=== PATIENT | female | born 1970 ===

== ENCOUNTER 2018-10-08 14:03 | Outpatient (CLI) | payer MEDICAID | END 2018-10-08 14:04 | disposition home or self-care (01) | LOC: C.MAMMO 14:03 ==

== ENCOUNTER 2018-12-25 17:36 | Emergency (ER) | payer MEDICAID ==
[2018-12-25 17:46] VITALS: BP 117/72; PULSE 58; RESP 18; TEMP 98; O2SAT 100
--- NOTE | 2018-12-25 18:15 | C.PDOC ---
History Of Present Illness 48 y/o female presents to the ER complaining of right eye redness which began today. Patient states that she noticed the redness when she woke up in the morning today. Patient reports that she was concerned so she decided to come to the ER.Denies having eye pain, itching, tearing, discharge, trauma,injuries, recent illness, glaucoma, and cataracts. Time Seen by Provider: 12/25/18 18:00 Chief Complaint (Nursing): Eye Problem History Per: Patient History/Exam Limitations: no limitations Onset/Duration Of Symptoms: Hrs Current Symptoms Are (Timing): Still Present Severity: Moderate Past Medical History Reviewed: Historical Data, Nursing Documentation, Vital Signs Vital Signs: Last Vital Signs Temp 98 F 12/25/18 17:44 Pulse 58 L 12/25/18 17:44 Resp 18 12/25/18 17:44 BP 117/72 12/25/18 17:44 Pulse Ox 100 12/25/18 17:44 - Medical History PMH: No Chronic Diseases Other Surgeries: Hx of surgeries Family History: States: No Known Family Hx - Social History Hx Alcohol Use: No Hx Substance Use: No - Immunization History Hx Tetanus Toxoid Vaccination: No Hx Influenza Vaccination: No Hx Pneumococcal Vaccination: No Review Of Systems Except As Marked, All Systems Reviewed And Found Negative. Eyes: Positive for: Redness (right eye redness). Negative for: Vision Change Physical Exam - Physical Exam Appears: Non-toxic, No Acute Distress Skin: Normal Color, Warm, Dry Head: Atraumatic, Normacephalic Eye(s): bilateral: PERRL, EOMI, right: Other (subconjunctival hemmorhage from 1- 4 o' clock position visual acuity: 20/20 OD; 20/20 OS), left: Normal Inspection Ear(s): Bilateral: Normal Nose: Normal Oral Mucosa: Moist Lips: Normal Appearing Throat: No Erythema, No Exudate Neck: Normal ROM, Supple Chest: Symmetrical Cardiovascular: Rhythm Regular Respiratory: Normal Breath Sounds, No Wheezing Neurological/Psych: Oriented x3, Normal Speech, Normal Motor, Normal Sensation ED Course And Treatment O2 Sat by Pulse Oximetry: 100 (RA) Pulse Ox Interpretation: Normal Disposition Counseled Patient/Family Regarding: Diagnosis, Need For Followup, Rx Given - Disposition Referrals: Júnior Woods [Staff Provider] - Virgil Nolan MD [Staff Provider] - Disposition: HOME/ ROUTINE Disposition Time: 18:32 Condition: STABLE Additional Instructions: Please review discharge handout on Subconj Hemorrhage Start Artificial Tears twice as needed Follow up with Optho in 1-2 days Return to ED if symptoms worsens Prescriptions: Dextran 70/Hypromellose [Artificial Tears Eye Drops] 1 drop OD BID #1 bottle Instructions: Subconjunctival Hemorrhage Forms: [employer] (Iranian) Print Language: HONG KONGER - Clinical Impression Clinical Impression: Subconjunctival hemorrhage of right eye, Redness of eye, right - PA / [employer] / Resident Statement MD/DO has reviewed & agrees with the documentation as recorded. - Scribe Statement The provider has reviewed the documentation as recorded by the Katelynn Reid Provider Attestation All medical record entries made by the Jakeiblouisa were at my direction and personally dictated by me. I have reviewed the chart and agree that the record accurately reflects my personal performance of the history, physical exam, medical decision making, and the department course for this patient. I have also personally directed, reviewed, and agree with the discharge instructions and disposition.
== END 2018-12-25 18:49 | disposition home or self-care (01) ==
LOC: C.ER 17:36
DX: H11.31 Conjunctival hemorrhage, right eye (principal); H57.89 Other specified disorders of eye and adnexa